=== PATIENT | male | born 1960 | race Caucasian/White ===

== ENCOUNTER 2022-06-18 14:18 | Emergency (ER) | payer BC, OTHER ==
[~2022-06-18] VITALS: Ht 177.8 cm; Wt 106.7 kg
[2022-06-18] MEDS ORDERED: NS IV 1000 ML 1,000 ML IV STA (14:39)
[2022-06-18] MEDS ORDERED: hydrALAZINE (APESOLINE) 20 MG/ML VIAL IV STA (14:39)
[2022-06-18 14:44] LABS: BASOPHILS % (AUTO) 0 % (0-10); EOSINOPHILS # (AUTO) 0.2 10^3/uL (0.0-0.3); EOSINOPHILS % (AUTO) 2 % (0-10); HEMATOCRIT 46 % (40-54); HEMOGLOBIN 17.2 g/dL (13.3-17.7); LYMPHOCYTES # (AUTO) 3.2 10^3/uL (1.0-4.0); LYMPHOCYTES % (AUTO) 31 % (12-44); MEAN CORPUSCULAR HEMOGLOBIN 32 pg (25-34); MEAN CORPUSCULAR HGB CONC 37 g/dL (32-36); MEAN CORPUSCULAR VOLUME 85 fL (80-99); MEAN PLATELET VOLUME 9.1 fL (9.0-12.2); MONOCYTES # (AUTO) 0.6 10^3/uL (0.0-1.0); MONOCYTES % (AUTO) 6 % (0-12); NEUTROPHILS # (AUTO) 6.2 10^3/uL (1.8-7.8); NEUTROPHILS % (AUTO) 60 % (42-75); PLATELET COUNT 237 10^3/uL (130-400); WHITE BLOOD COUNT 10.2 10^3/uL (4.3-11.0)
[2022-06-18 14:52] LABS: INR 0.9 (0.8-1.4); PROTHROMBIN TIME PATIENT 12.7 SEC (12.2-14.7)
--- NOTE | 2022-06-18 14:56 | Diagnostic Imaging Report ---
EXAMINATION: Chest 1 view. HISTORY: Shoulder pain. COMPARISON: None available. FINDINGS: The lungs are clear without edema or pneumonia. No pleural effusion or pneumothorax. Heart size is normal. IMPRESSION: Clear lungs. Dictated by: Dictated on workstation # [id number]
[2022-06-18 15:13] LABS: ALKALINE PHOSPHATASE 52 U/L (40-136); BILIRUBIN,TOTAL 0.8 MG/DL (0.1-1.0); BUN/CREATININE RATIO 15; CALCIUM 9.5 MG/DL (8.5-10.1); CARBON DIOXIDE 24 MMOL/L (21-32); CHLORIDE 94 MMOL/L (98-107); CREATININE SERUM 0.98 MG/DL (0.60-1.30); GFR ESTIMATED 88; GLUCOSE 113 MG/DL (70-105); MAGNESIUM 2.1 MG/DL (1.6-2.4); POTASSIUM 3.8 MMOL/L (3.6-5.0); SODIUM 130 MMOL/L (135-145)
[2022-06-18 15:14] LABS: ALANINE AMINOTRANSFERASE 35 U/L (0-55); ALBUMIN 4.6 GM/DL (3.2-4.5); LIPASE 31 U/L (8-78); TOTAL PROTEIN 7.5 GM/DL (6.4-8.2)
--- NOTE | 2022-06-18 15:51 | ED General ---
General Chief Complaint: General Problems/Pain Stated Complaint: ELEV BP; TYREL SHOULDER PN Nursing Triage Note: Patient presents to the ED with c/o elevated blood pressure and bilateral shoulder pain. Reports shoulder pain has been ongoing for a couple of weeks without any known injury. States he wasn't feeling well today so took his blood pressure and his heart rate was 104 and his blood pressure ranged from 150/80s to 160/90s. Source of Information: Patient History of Present Illness Date Seen by Provider: Jun 18, 2022 Time Seen by Provider: 14:26 Initial Comments 61-year-old male presenting with complaints of bilateral shoulder pain and elevated blood pressure for the last several weeks. He felt like he was having problems today and did not feel well so he checked his vital signs at home and had elevated blood pressure and heart rate. He has an appointment to be seen in the clinic at the end of this week. However with his symptoms feeling worse today he felt like he could not wait until Sunday to be seen so he came to the emergency department. He denies having any nausea, vomiting, shortness of breath, headache, change in vision. He feels like the pain in his shoulders improves when he lays on the floor and pops his back. He denies any acute trauma or injury. Timing/Duration: Intermittent (Over the last several weeks but worse today) Severity: Moderate Associated Systoms: No Chest Pain, No Cough, No Diaphoresis, No Fever/Chills, No Headaches, No Loss of Appetite, No Malaise, No Nausea/Vomiting, No Rash, No Seizure, No Shortness of Air, No Syncope, No Weakness Allergies and Home Medications Allergies Coded Allergies: No Known Drug Allergies (Unverified , 06/18/22) Patient Home Medication List Home Medication List Reviewed: Yes Review of Systems Review of Systems Constitutional: No chills, No diaphoresis, No dizziness, No fever EENTM: No vision loss, No epistaxis, No nose congestion Respiratory: No cough, No short of breath Cardiovascular: No chest pain, No edema, No palpitations Gastrointestinal: No abdominal pain, No nausea, No vomiting Genitourinary: No dysuria, No hematuria Musculoskeletal: joint pain (Bilateral shoulders) Skin: No change in color, No rash Psychiatric/Neurological: Denies Headache Past Atjrpls-Elzbzz-Zpbpaw Hx Patient Social History Tobacco Use?: No Use of E-Cig and/or Vaping dev: No Substance use?: No Alcohol Use?: No Pt feels they are or have been: No Immunizations Up To Date First/Initial COVID19 Vaccinat: Yes Second COVID19 Vaccination Kristian: Yes Past Medical History Surgery/Hospitalization HX: HTN Physical Exam Vital Signs Vital Signs - First Documented 06/18/22 14:24 Temp 36.7 Pulse 113 Resp 18 B/P (MAP) 177/89 (118) Pulse Ox 99 O2 Delivery Room Air Capillary Refill : NONE Height, Weight, BMI Height: '" Weight: lbs. oz. kg; 33.00 BMI Method: General Appearance: No Apparent Distress, Obese Eyes: Bilateral Eye PERRL, Bilateral Eye EOMI HEENT: Normal ENT Inspection, Pharynx Normal Neck: Full Range of Motion, Normal Inspection, Non Tender, Supple Respiratory: Chest Non Tender, Lungs Clear, Normal Breath Sounds, No Accessory Muscle Use, No Respiratory Distress Cardiovascular: Regular Rate, Rhythm, Normal Peripheral Pulses Gastrointestinal: Normal Bowel Sounds, No Pulsatile Mass, Non Tender, Soft Rectal: Deferred Back: No CVA Tenderness, No Vertebral Tenderness Extremity: Normal Capillary Refill, Normal Inspection, Normal Range of Motion, Non Tender, No Pedal Edema Neurologic/Psychiatric: Alert, Oriented x3, manager heavy duty II-XII Norm as Tested Skin: Normal Color, Warm/Dry Progress/Results/Core Measures Suspected Sepsis SIRS Temperature: Pulse: 113 Respiratory Rate: 18 Laboratory Tests 06/18/22 14:30: White Blood Count 10.2 Blood Pressure 177 /89 Mean: 118 Laboratory Tests 06/18/22 14:30: Creatinine 0.98, INR Comment 0.9, Platelet Count 237, Total Bilirubin 0.8 Results/Orders Lab Results Laboratory Tests Test 06/18/22 14:30 Range/Units White Blood Count 10.2 4.3-11.0 10^3/uL Red Blood Count 5.45 4.30-5.52 10^6/uL Hemoglobin 17.2 13.3-17.7 g/dL Hematocrit 46 40-54 % Mean Corpuscular Volume 85 80-99 fL Mean Corpuscular Hemoglobin 32 25-34 pg Mean Corpuscular Hemoglobin Concent 37 H 32-36 g/dL Red Cell Distribution Width 11.7 10.0-14.5 % Platelet Count 237 130-400 10^3/uL Mean Platelet Volume 9.1 9.0-12.2 fL Immature Granulocyte % (Auto) 0 % Neutrophils (%) (Auto) 60 42-75 % Lymphocytes (%) (Auto) 31 12-44 % Monocytes (%) (Auto) 6 0-12 % Eosinophils (%) (Auto) 2 0-10 % Basophils (%) (Auto) 0 0-10 % Neutrophils # (Auto) 6.2 1.8-7.8 10^3/uL Lymphocytes # (Auto) 3.2 1.0-4.0 10^3/uL Monocytes # (Auto) 0.6 0.0-1.0 10^3/uL Eosinophils # (Auto) 0.2 0.0-0.3 10^3/uL Basophils # (Auto) 0.0 0.0-0.1 10^3/uL Immature Granulocyte # (Auto) 0.0 0.0-0.1 10^3/uL Prothrombin Time 12.7 12.2-14.7 SEC INR Comment 0.9 0.8-1.4 Activated Partial Thromboplast Time 28 24-35 SEC Sodium Level 130 L 135-145 MMOL/L Potassium Level 3.8 3.6-5.0 MMOL/L Chloride Level 94 L 98-107 MMOL/L Carbon Dioxide Level 24 21-32 MMOL/L Anion Gap 12 5-14 MMOL/L Blood Urea Nitrogen 15 7-18 MG/DL Creatinine 0.98 0.60-1.30 MG/DL Estimat Glomerular Filtration Rate 88 BUN/Creatinine Ratio 15 Glucose Level 113 H 70-105 MG/DL Calcium Level 9.5 8.5-10.1 MG/DL Corrected Calcium 8.5-10.1 MG/DL Magnesium Level 2.1 1.6-2.4 MG/DL Total Bilirubin 0.8 0.1-1.0 MG/DL Aspartate Amino Transf (AST/SGOT) 24 5-34 U/L Alanine Aminotransferase (ALT/SGPT) 35 0-55 U/L Alkaline Phosphatase 52 40-136 U/L Troponin I < 0.30 <0.30 NG/ML Pro-B-Type Natriuretic Peptide 36.1 <125.0 PG/ML Total Protein 7.5 6.4-8.2 GM/DL Albumin 4.6 H 3.2-4.5 GM/DL Lipase 31 8-78 U/L My Orders Orders - OLI CM MD Ekg Tracing (06/18/22 14:28) Monitor-Rhythm Ecg Trace Only (06/18/22 14:28) Cbc With Automated Diff (06/18/22 14:39) Magnesium (06/18/22 14:39) Chest 1 View Ap/Pa Only (06/18/22 14:39) Comprehensive Metabolic Panel (06/18/22 14:39) Protime With Inr (06/18/22 14:39) Partial Thromboplastin Time (06/18/22 14:39) O2 (06/18/22 14:39) Ed Iv/Invasive Line Start (06/18/22 14:39) Lipase (06/18/22 14:39) Troponin I Fs (06/18/22 14:39) Probnp Fs (06/18/22 14:39) Hydralazine Injection (Apresoline Inject (06/18/22 14:39) Ns Iv 1000 Ml (Sodium Chloride 0.9%) (06/18/22 14:39) Vital Signs/I&O 06/18/22 06/18/22 14:24 15:56 Temp 36.7 36.7 Pulse 113 90 Resp 18 18 B/P (MAP) 177/89 (118) 126/75 Pulse Ox 99 99 O2 Delivery Room Air Room Air Capillary Refill : NONE Blood Pressure Mean: 118 Progress Note #1: Progress Note Obtain labs to evaluate his blood count as well as electrolytes and cardiac enzymes. Electrocardiogram since he was complaining of high blood pressure and bilateral shoulder pain. Give hydralazine 10 mg IV to help with blood pressure. His electrocardiogram did not show acute ST elevation. Progress Note #2: Progress Note Blood pressure significantly improved with treatment in the ED. His chest x-ray and electrocardiogram are benign without acute process. His labs all appeared stable without acute significant abnormality. Specifically his cardiac enzymes were negative for acute coronary syndrome her ischemia considering he was having symptoms all day and off and on over the last few weeks. Reassured patient and advised that the clinic may adjust his medicines and he should call tomorrow to see if they can move up his appointment. In the meantime keep a log of his blood pressures and follow a DASH diet in addition to taking his medication. ECG Initial ECG Impression Date: Jun 18, 2022 Initial ECG Impression Time: 14:34 Initial ECG Rate: 102 Initial ECG Rhythm: S.Tach Initial ECG Comparisson: No Previous ECG Available Comment On my personal interpretation and review of his electrocardiogram he has sinus tachycardia with a heart rate of 102 bpm. He has no acute ST elevation. VA interval 199 ms. QT interval 342 ms with a QTc interval 401 ms. He has no prior tracing available for comparison. Diagnostic Imaging Diagonstic Imaging: Xray Plain Films/CT/US/NM/MRI: chest Comments [facility], [place] NAME: OPAL WHITMAN [facility] REC#: [id number] PT STATUS: DEP ER : 1960 PHYSICIAN: OLI CM MD ADMIT DATE: 06/18/22/ER FS Signed Date of Exam:06/18/22 CHEST 1 VIEW AP/PA ONLY EXAMINATION: Chest 1 view. HISTORY: Shoulder pain. COMPARISON: None available. FINDINGS: The lungs are clear without edema or pneumonia. No pleural effusion or pneumothorax. Heart size is normal. IMPRESSION: Clear lungs. Dictated by: Dictated on workstation # [id number] Dict: 06/18/22 1455 Trans: 06/18/22 1606 [facility] [id number] Interpreted by: ROWAN HERBERT MD Electronically signed by: ROWAN HERBERT MD 06/18/22 1606 Reviewed: Reviewed by Me Departure Impression Primary Impression: Labile hypertension Additional Impression: Bilateral shoulder pain Qualified Codes: M25.511 - Pain in right shoulder; M25.512 - Pain in left shoulder; G89.29 - Other chronic pain Disposition: HOME, SELF-CARE Condition: Stable Departure-Patient Inst. Decision time for Depature: 15:49 Referrals: FRANCISCO KENNY MD (PCP) Primary Care Physician Patient Instructions: DASH Diet, High Blood Pressure ED, Shoulder Pain ED Add. Discharge Instructions: Keep appointment with the clinic this week. Keep a log of your blood pressures so that you can review them with the clinic. Continue taking your blood pressure medicine. Follow a DASH diet to try and help with your blood pressure while waiting to get in with clinic this week. All discharge instructions reviewed with patient and/or family. Voiced understanding. OLI CM MD Jun 18, 2022 15:51
[2022-06-18 15:56] VITALS: BP 126/75
== END 2022-06-18 15:56 | disposition home or self-care (01) ==
LOC: ER FS 14:20
DX: M25.511 Pain in right shoulder (principal); M25.512 Pain in left shoulder; I10 Essential (primary) hypertension
CPT/HCPCS: 36415; 71045; 80053; 83690; 83735; 83880; 84484; 85025; 85610; 85730; 93005; 93041